=== PATIENT | male | born 1960 | race African-American/Black ===

== ENCOUNTER 2018-03-30 15:17 | Emergency (ER) | payer MEDICARE, MEDICAID ==
[~2018-03-30] VITALS: Ht 180.3 cm; Wt 110.0 kg
[2018-03-30 17:08] LABS: CHLORIDE 106 mEq/L (98-107)
[2018-03-30 17:10] LABS: PROTHROMBIN TIME 10.3 sec (9.1-11.1)
[2018-03-30 17:11] LABS: BASOPHILS % 0.8 % (0.0-2.0); HEMATOCRIT. 47.7 % (42.0-52.0); HEMOGLOBIN. 15.7 g/dL (14.0-18.0); LYMPHOCYTES % 20.1 % (20.0-50.0); MEAN CORPUSCULAR HEMOGLOBIN 31.4 pg (28.0-32.0); MEAN PLATELET VOLUME 8.2 fl (7.4-10.4); MONOCYTES % 8.5 % (2.0-8.0); NEUTROPHILS % 63.6 % (40.0-76.0); PLATELET 266 x1000/uL (130-400); RED BLOOD CELL COUNT 5.02 mill/uL (4.7-6.1); RED CELL DISTRIBUTION WIDTH 14.3 % (11.6-14.6)
[2018-03-30 17:12] LABS: ETHANOL BLOOD 44 mg/dL
[2018-03-30 18:04] LABS: *AMPHETAMINES SCREEN URINE NEGATIVE (NEGATIVE); *BARBITURATES SCREEN URINE NEGATIVE (NEGATIVE); *BENZODIAZEPINES SCREEN URINE NEGATIVE (NEGATIVE); *COCAINE SCREEN URINE NEGATIVE (NEGATIVE)
[2018-03-30 18:05] LABS: CANNABINOID URINE SCREEN PRESUMTIVE POSITIVE (NEGATIVE); METHADONE URINE SCREEN NEGATIVE (NEGATIVE); OPIATES URINE SCREEN NEGATIVE (NEGATIVE); PHENCYCLIDINE URINE SCREEN NEGATIVE (NEGATIVE)
[2018-03-30] MEDS ORDERED: IOHEXOL-350 100 ML BOTTLE ONE (18:47)
[2018-03-30] MEDS ORDERED: KETOROLAC 15MG/ML VIAL IV ONE (20:30)
[2018-03-30 20:49] VITALS: BP 144/90
== END 2018-03-30 20:59 | disposition home or self-care (01) ==
LOC: ER 17:17 → CANBEDREQ 21:04
DX: R07.89 Other chest pain (principal); R04.2 Hemoptysis; E78.00 Pure hypercholesterolemia, unspecified; I10 Essential (primary) hypertension; Z86.718 Personal history of other venous thrombosis and embolism
CPT/HCPCS: 36415; 71045; 71275; 80053; 80305; 83880; 84484; 85025; 85610; 93005; 93970; 99284; G0482; Q9967